=== PATIENT | male | born 1985 | race Caucasian/White ===

== ENCOUNTER 2020-02-26 03:00 | Outpatient (CLI) | payer MEDICARE, MEDICAID, SELFPAY ==
[2020-02-26 19:46] LABS: SARS-CoV-2 RNA PCR Negative
== END 2020-02-26 03:01 | disposition home or self-care (01) ==
LOC: ANHCOVIDDT 03:01
PROVIDERS: PCP Family Medicine; Visit Provider Internal Medicine Gastroenterology
DX: Z01.812 Encounter for preprocedural laboratory examination (principal); Z20.828 Contact with and (suspected) exposure to other viral communicable diseases
CPT/HCPCS: 87635; C9803; U0003

== ENCOUNTER 2020-02-29 04:41 | Day surgery (SDC) | payer MEDICARE, MEDICAID, SELFPAY ==
[2020-02-26 10:15] VITALS: BMI 41.2
[2020-02-29 08:40] VITALS: BP 169/109; PULSE 98; RESP 20; TEMP 36.7; O2SAT 96
[2020-02-29] MEDS: LACTATED RINGERS 1,000 ML 150 ML IV CONT (08:52)
--- NOTE | 2020-02-29 09:00 | WPDANESEPPF ---
Anes - Initial Pre Proc Eval Procedure: Operation Date: 02/29/20 10:00 Proposed Procedures p Esophagogastroduodenoscopy - Nolberto Lou MD Date/Time: 02/29/20 09:00 Surgeon: Nolberto Lou MD Pre Op Diagnosis: barretts esophagus Patient Data Age: 35 Gender: M Height: 5 ft 8 in Weight: 143 kg Last Vital Signs Temp 36.7 C 02/29/20 08:40 Pulse 98 02/29/20 08:40 Resp 20 02/29/20 08:40 BP 169/109 H 02/29/20 08:40 Pulse Ox 96 02/29/20 08:40 Allergies Allergy/AdvReac Type Severity Reaction Status Date / Time Cat Dander Allergy Intermediate Rash Uncoded 02/29/20 08:43 Home Medications Medication Instructions Recorded Confirmed Type No Home Medications 02/26/20 02/29/20 History Patient hx anesthesia problems: none Family hx anesthesia problems: none PMFSH Past Medical History Medical History GERD (gastroesophageal reflux disease) VIVIENNE (obstructive sleep apnea) Social History Social History Alcohol intake: never Substance use: never Substance use type: does not use Living arrangements: alone Spiritual care concerns: No Anes - Eval Final PreProcedure Day of Procedure 02/29/20 09:00 Patient weight: morbidly obese Heart: regular rate and rhythm Lungs: clear to auscultation Airway: Mallampati scale class II Neurological: alert and oriented Last oral intake: >/= 8 hours ASA classification: III Emergent: no Anesthetic plan: proceed Anesthesia type and monitoring: general GIVS and standard monitoring Informed Consent: The patient's anesthetic plan and its attendant risks and benefits were discussed with the patient/family/POA. Questions were solicited and answers provided to the satisfaction of the patient/family/POA.
--- NOTE | 2020-02-29 09:07 | WPDGICN ---
Assessment and Plan Assessment and plan (1) Olson's esophagus: Code(s): K22.70 - Olson's esophagus without dysplasia Status: Acute Assessment and Plan: Patient is known to have Olson's esophagus. Currently stable on proton pump inhibitor therapy. Plan is for surveillance EGD at approximately 3 years intervals for biopsy. GI Consult Note Consult date/time: 02/29/20 09:07 HPI: Robert Evans is a 35 year old male Seen in evaluation at the request of Dr. Rivers. Patient has a known history of Olson's esophagus. Patient presents today for surveillance exam. He states he has no heartburn. He denies any weight loss. He has had no bleeding. Last exam was approximately 3 years ago. He has been maintained on omeprazole 40 mg p.o. b.i.d.. [facility] Past Medical History Medical History GERD (gastroesophageal reflux disease) VIVIENNE (obstructive sleep apnea) Social History Social History Alcohol intake: never Substance use: never Substance use type: does not use Living arrangements: alone Spiritual care concerns: No Meds Home Medications and Allergies Home Medications Medication Instructions Recorded Confirmed Type No Home Medications 02/26/20 02/29/20 History Allergies Allergy/AdvReac Type Severity Reaction Status Date / Time Cat Dander Allergy Intermediate Rash Uncoded 02/29/20 08:43 Vital Signs Vital Signs - 24 hr 02/29/20 08:40 Temperature 98.1 F Pulse Rate 98 Respiratory Rate 20 Blood Pressure 169/109 H Pulse Oximetry 96 Exam Narrative: Exam Narrative: Physical exam reveals patient to be alert. Vital signs stable. HEENT exam unremarkable. Lungs are clear to auscultation and percussion. Heart is without murmur or extra sounds. Abdominal exam Reveals patient be somewhat obese. bowel sounds are present soft nontender with no organomegaly. Digital external rectal exam is normal.
[2020-02-29] MEDS: BENZOCAINE (*SP) 60 ML SPRAY CAN (HURRICAINE) 1 SPRAY MUCOUS MEM (09:34)
[2020-02-29 10:00] VITALS: BP 158/102; PULSE 98; RESP 14; O2SAT 94
[2020-02-29 10:10] VITALS: BP 153/110; PULSE 97; RESP 16; O2SAT 93
[2020-02-29 10:20] VITALS: BP 140/98; PULSE 93; RESP 14; O2SAT 96
== END 2020-02-29 10:47 | disposition home or self-care (01) ==
PROVIDERS: PCP Family Medicine; Visit Provider Internal Medicine Gastroenterology
PROC: 0DJ08ZZ Inspection of Upper Intestinal Tract, Via Natural or Artificial Opening Endoscopic (ICD-10-PCS; CPT 43235; principal; 2020-02-29 10:00)
DX: K22.70 Barrett's esophagus without dysplasia (principal); K21.00 Gastro-esophageal reflux disease with esophagitis, without bleeding; G47.33 Obstructive sleep apnea (adult) (pediatric); E66.01 Morbid (severe) obesity due to excess calories; Z68.42 Body mass index [BMI] 45.0-49.9, adult
CPT/HCPCS: 43239; 88305; J2001; J2704; J7120